=== PATIENT | male | born 1990 | race Caucasian/White ===

== ENCOUNTER 2016-12-24 21:18 | Emergency (ER) | payer OTHER ==
[2016-12-24 22:16] LABS: BASOPHIL % 0.8 % (0-2); PLATELET COUNT 222 x10^3mcL (130-400); RED CELL DISTRIBUTION WIDTH 13.6 % (11.5-14.5)
[2016-12-24 22:29] LABS: CARBON DIOXIDE 28.2 mmol/L (21-32); CHLORIDE SERUM 103 mmol/L (98-107); CREATININE SERUM 1.2 mg/dL (0.7-1.3); GFR1 > 60 mL/min; GLUCOSE SERUM 99 mg/dL (74-106); POTASSIUM SERUM 3.7 mmol/L (3.5-5.1); SODIUM SERUM 141 mmol/L (136-145)
[2016-12-24 22:34] LABS: ALBUMIN 3.9 g/dL (3.4-5.0); ALKALINE PHOSPHATASE 40 U/L (46-116); ALT/SGPT 46 U/L (16-63); AST/SGOT 20 U/L (15-37); BILIRUBIN TOTAL 0.3 mg/dL (0.20-1.00); CHOLESTEROL 185 mg/dL (<200); TOTAL PROTEIN, SERUM 7.4 g/dL (6.4-8.2)
[2016-12-24 23:21] VITALS: BP 138/89
== END 2016-12-24 23:21 | disposition home or self-care (01) ==
LOC: ED 21:18
PROVIDERS: Emergency Medicine
DX: R42 Dizziness and giddiness (principal); R09.89 Other specified symptoms and signs involving the circulatory and respiratory systems; F41.9 Anxiety disorder, unspecified; F99 Mental disorder, not otherwise specified; R73.03 Prediabetes; J45.909 Unspecified asthma, uncomplicated; Z88.5 Allergy status to narcotic agent; Z79.899 Other long term (current) drug therapy

== ENCOUNTER 2017-01-17 01:18 | Emergency (ER) | payer OTHER ==
[2017-01-17 01:42] VITALS: BP 149/98
== END 2017-01-17 01:42 | disposition home or self-care (01) ==
LOC: ED 01:18
DX: J02.9 Acute pharyngitis, unspecified (principal)
CPT/HCPCS: J1100; J1885

== ENCOUNTER 2017-01-20 03:47 | Emergency (ER) | payer OTHER ==
[2017-01-20 04:16] VITALS: BP 149/96
== END 2017-01-20 04:16 | disposition home or self-care (01) ==
LOC: ED 03:47
DX: H66.92 Otitis media, unspecified, left ear (principal); J06.9 Acute upper respiratory infection, unspecified

== ENCOUNTER 2017-04-27 10:40 | Emergency (ER) | payer OTHER ==
[~2017-04-27] VITALS: Ht 182.9 cm; Wt 140.2 kg
[2017-04-27 12:31] VITALS: BP 130/90
== END 2017-04-27 12:31 | disposition home or self-care (01) ==
LOC: ED 10:40
DX: H10.213 Acute toxic conjunctivitis, bilateral (principal); J45.909 Unspecified asthma, uncomplicated; Z88.5 Allergy status to narcotic agent
CPT/HCPCS: J7030; V2632

== ENCOUNTER 2017-04-30 21:42 | Emergency (ER) | payer OTHER ==
[2017-05-01 00:56] VITALS: BP 133/74
== END 2017-05-01 00:55 | disposition home or self-care (01) ==
LOC: ED 21:42
DX: H10.211 Acute toxic conjunctivitis, right eye (principal); Z88.5 Allergy status to narcotic agent
CPT/HCPCS: J7040; J7050; V2632

== ENCOUNTER 2017-05-06 17:25 | Emergency (ER) | payer OTHER ==
[2017-05-06 18:43] VITALS: BP 120/74
== END 2017-05-06 18:43 | disposition home or self-care (01) ==
LOC: ED 17:25
DX: K11.20 Sialoadenitis, unspecified (principal); J45.909 Unspecified asthma, uncomplicated; Z88.5 Allergy status to narcotic agent
CPT/HCPCS: J1885

== ENCOUNTER 2017-05-25 02:30 | Emergency (ER) | payer OTHER ==
[2017-05-25 03:39] VITALS: BP 145/96
== END 2017-05-25 03:39 | disposition home or self-care (01) ==
LOC: ED 02:30
DX: R06.02 Shortness of breath (principal); R00.2 Palpitations; R20.2 Paresthesia of skin; J45.909 Unspecified asthma, uncomplicated; F17.210 Nicotine dependence, cigarettes, uncomplicated; T50.905A Adverse effect of unspecified drugs, medicaments and biological substances, initial encounter; Y92.89 Other specified places as the place of occurrence of the external cause

== ENCOUNTER 2017-06-08 06:26 | Emergency (ER) | payer OTHER ==
[2017-06-08 08:00] LABS: CALCIUM 8.8 mg/dL (8.5-10.1); CARBON DIOXIDE 25.8 mmol/L (21-32); CHLORIDE SERUM 103 mmol/L (98-107); CREATININE SERUM 1.2 mg/dL (0.7-1.3); GFR1 > 60 mL/min; GLUCOSE SERUM 141 mg/dL (74-106); POTASSIUM SERUM 3.7 mmol/L (3.5-5.1); SODIUM SERUM 139 mmol/L (136-145)
== END 2017-06-08 08:29 | disposition home or self-care (01) ==
LOC: ED 06:26
PROVIDERS: Emergency Medicine
DX: R10.9 Unspecified abdominal pain (principal); R68.2 Dry mouth, unspecified; R03.0 Elevated blood-pressure reading, without diagnosis of hypertension; T44.5X5A Adverse effect of predominantly beta-adrenoreceptor agonists, initial encounter; J45.909 Unspecified asthma, uncomplicated; Z88.5 Allergy status to narcotic agent; Y92.89 Other specified places as the place of occurrence of the external cause
CPT/HCPCS: Q0162

== ENCOUNTER 2017-08-20 03:12 | Emergency (ER) | payer OTHER ==
[~2017-08-20] VITALS: Ht 182.9 cm; Wt 142.9 kg
[2017-08-20 04:20] VITALS: BP 143/106
== END 2017-08-20 04:20 | disposition home or self-care (01) ==
LOC: ED 03:12
DX: J20.8 Acute bronchitis due to other specified organisms (principal); Z88.5 Allergy status to narcotic agent; Z79.51 Long term (current) use of inhaled steroids
CPT/HCPCS: Q0092

== ENCOUNTER 2017-09-14 08:38 | Emergency (ER) | payer OTHER ==
[2017-09-14 11:29] VITALS: BP 146/80
== END 2017-09-14 11:29 | disposition home or self-care (01) ==
LOC: ED 08:38
DX: R21 Rash and other nonspecific skin eruption (principal); J45.909 Unspecified asthma, uncomplicated; Z88.5 Allergy status to narcotic agent
CPT/HCPCS: J1200; J2930

== ENCOUNTER 2017-10-23 04:11 | Emergency (ER) | payer OTHER ==
[~2017-10-23] VITALS: Ht 182.9 cm; Wt 144.2 kg
[2017-10-23 04:15] VITALS: Ht 182.9 cm; Wt 144.2 kg
[2017-10-23 07:45] VITALS: BP 117/82
== END 2017-10-23 07:45 | disposition home or self-care (01) ==
LOC: ED 04:11
DX: S06.0X0A Concussion without loss of consciousness, initial encounter (principal); S00.01XA Abrasion of scalp, initial encounter; J45.909 Unspecified asthma, uncomplicated; Z88.5 Allergy status to narcotic agent; W22.03XA Walked into furniture, initial encounter; Y93.89 Activity, other specified; Y99.8 Other external cause status; Y92.89 Other specified places as the place of occurrence of the external cause

== ENCOUNTER 2018-10-09 09:21 | Emergency (ER) | payer OTHER ==
[~2018-10-09] VITALS: Ht 182.9 cm; Wt 151.0 kg
[2018-10-09 09:38] VITALS: BP 145/77; Ht 182.9 cm; Wt 151.0 kg
[2018-10-09 10:50] LABS: microscopic required? YES; urine erythrocyte TRACE (NEGATIVE)
[2018-10-10 10:24] LABS: RAPID PLASMA REAGIN Non Reactive (Non Reactive)
== END 2018-10-09 11:19 | disposition home or self-care (01) ==
LOC: ED 09:21
PROVIDERS: Emergency Medicine
DX: R30.0 Dysuria (principal); M54.5 Low back pain; E11.9 Type 2 diabetes mellitus without complications; F41.9 Anxiety disorder, unspecified; E66.01 Morbid (severe) obesity due to excess calories; J45.909 Unspecified asthma, uncomplicated; Z68.42 Body mass index [BMI] 45.0-49.9, adult; Z98.890 Other specified postprocedural states; Z88.6 Allergy status to analgesic agent
CPT/HCPCS: 82962; 87491; 87591; J0696

== ENCOUNTER 2019-05-04 18:44 | Emergency (ER) | payer OTHER ==
[~2019-05-04] VITALS: Ht 182.9 cm; Wt 152.0 kg
[2019-05-04 18:49] VITALS: Ht 182.9 cm; Wt 152.0 kg
[2019-05-04 22:01] VITALS: BP 135/80
== END 2019-05-04 22:01 | disposition home or self-care (01) ==
LOC: ED 18:44
DX: S39.011A Strain of muscle, fascia and tendon of abdomen, initial encounter (principal); M54.5 Low back pain; J45.909 Unspecified asthma, uncomplicated; Z88.5 Allergy status to narcotic agent; W22.8XXA Striking against or struck by other objects, initial encounter; Y93.I9 Activity, other involving external motion; Y92.89 Other specified places as the place of occurrence of the external cause; Y99.8 Other external cause status
CPT/HCPCS: J1885

== ENCOUNTER 2019-05-29 23:06 | Emergency (ER) | payer OTHER ==
[~2019-05-29] VITALS: Ht 182.9 cm; Wt 150.1 kg
[2019-05-29 23:15] VITALS: Ht 182.9 cm; Wt 150.1 kg
[2019-05-30 00:08] VITALS: BP 130/74
== END 2019-05-30 00:08 | disposition home or self-care (01) ==
LOC: ED 23:06
DX: S50.862A Insect bite (nonvenomous) of left forearm, initial encounter (principal); L03.114 Cellulitis of left upper limb; F41.9 Anxiety disorder, unspecified; Z88.5 Allergy status to narcotic agent; W57.XXXA Bitten or stung by nonvenomous insect and other nonvenomous arthropods, initial encounter; Y93.89 Activity, other specified; Y92.89 Other specified places as the place of occurrence of the external cause; Y99.8 Other external cause status
CPT/HCPCS: J2920

== ENCOUNTER 2020-04-03 10:18 | Emergency (ER) | payer MEDICAID ==
[~2020-04-03] VITALS: Ht 182.9 cm; Wt 160.1 kg
[2020-04-03 10:26] VITALS: Ht 182.9 cm; Wt 160.1 kg
[2020-04-03 11:42] VITALS: BP 129/66
== END 2020-04-03 11:42 | disposition home or self-care (01) ==
LOC: ED 10:18
DX: M25.511 Pain in right shoulder (principal); M24.9 Joint derangement, unspecified; J45.909 Unspecified asthma, uncomplicated; Z88.5 Allergy status to narcotic agent
CPT/HCPCS: Q0092